=== PATIENT | female | born 1960 | race African-American/Black ===

== ENCOUNTER 2017-10-04 10:19 | Day surgery (SDC) | payer OTHER ==
[2017-10-04] MEDS ORDERED: LIDOCAINE 100 MG SYRINGE (11:36)
[2017-10-04] MEDS ORDERED: IODIXANOL LOCM 100 ML BTL (11:37)
[2017-10-04 12:05] LABS: ADD MAN DIFF? NO
[2017-10-04 12:10] LABS: INR 1.19; PROTIME 15.3 Sec (11.9-14.9); PT RATIO 1.2
[2017-10-04 12:11] LABS: BASOPHILS % 0.7 % (0.0-2.0); EOSINOPHILS % 0.4 % (0.0-7.0); HEMATOCRIT 35.5 % (37.0-47.0); LYMPHOCYTES # 1.9 10^3/ul (0.8-2.9); MEAN CORPUSCULAR HEMOGLOBIN 31.5 pg (29.0-33.0); MEAN CORPUSCULAR HGB CONC 33.8 g/dl (32.0-37.0); MEAN CORPUSCULAR VOLUME 93.2 fl (82.0-101.0); MEAN PLATELET VOLUME 11.4 fl (7.4-10.4); MONOCYTE # 0.3 10^3/ul (0.3-0.9); MONOCYTES % 4.9 % (0.0-11.0); NEUTROPHIL # 3.2 10^3/ul (1.6-7.5); NEUTROPHILS % 58.6 % (39.0-77.0); PLATELET COUNT 268 10^3/UL (140-415); RED BLOOD COUNT 3.81 10^6/ul (4.20-5.40); RED CELL DISTRIBUTION WIDTH 16.4 % (11.5-14.5)
[2017-10-04 12:11] LABS: WHITE BLOOD COUNT 5.5 10^3/ul (4.8-10.8)
[2017-10-04] MEDS ORDERED: FENTAnyl 50 MCG/ML VIAL (12:13)
[2017-10-04] MEDS ORDERED: MIDAZOLAM 1 MG/ML 2 ML INJ (12:13)
[2017-10-04 12:16] LABS: ANION GAP 11 (8-16); CARBON DIOXIDE 31 mmol/L (21-31); CHLORIDE 103 mmol/L (97-110); GLUCOSE 105 mg/dl (70-220)
[2017-10-04 12:19] LABS: BLOOD UREA NITROGEN 11 mg/dl (7-20); CALCIUM 9.9 mg/dl (8.4-10.2); CREATININE 0.68 mg/dl (0.44-1.00); SODIUM 142 mmol/L (135-144)
[2017-10-04 12:20] LABS: POTASSIUM 3.4 mmol/L (3.5-5.1)
[2017-10-04] MEDS ORDERED: CLOPIDOGREL 300 MG TAB (13:25)
== END 2017-10-04 16:15 | disposition home or self-care (01) ==
LOC: SDS 10:19
DX: M62.262 Nontraumatic ischemic infarction of muscle, left lower leg (principal); E11.9 Type 2 diabetes mellitus without complications; I10 Essential (primary) hypertension
CPT/HCPCS: 37224; 75710; 80048; 85025; 85610; 85730